=== PATIENT | female | born 1935 | race Caucasian/White ===

== ENCOUNTER 2020-05-15 20:18 | Emergency (ER) | payer SELFPAY ==
[~2020-05-15] VITALS: Ht 165.1 cm; Wt 75.0 kg
--- NOTE | 2020-05-15 20:35 | NUR ---
PATIENT WINIFRED DE LUNA FROM [facility] WITH CHIEF C/O WEAKNESS X2 DAYS. PER EMS PATIENT'S DAUGHTER REPORTS PATIENT IS CONFUSED, AND HAD A GLF YESTERDAY EVENING. PATIENT DENIES LOC. EMS STATES PATIENT HAD FEVER OF 101.9. 1000 MG TYLENOL AND 250 NS EN ROUTE. 18 GAUGE IV STARTED LEFT AC. NO SIGNS OF ACUTE DISTRESS, CONNECTED TO TURNING MACHINE OPERATOR, SIDE RAILS UP X2, CALL LIGHT WITHIN REACH, DAUGHTER AT BEDSIDE.
--- NOTE | 2020-05-15 20:35 | NUR ---
ER PROVIDER AT BEDSIDE FOR EVALUATION.
[2020-05-15 21:10] LABS: BASOPHILS % (AUTO) 1 % (0-1); EOSINOPHILS % (AUTO) 0 % (1-7); LYMPHOCYTES % (AUTO) 27 % (22-44); MEAN CORPUSCULAR HGB CONC 33.8 g/dL (32.4-35.8); MEAN PLATELET VOLUME 8.8 fL (7.4-10.4); MONOCYTES % (AUTO) 12 % (2-9); NEUTROPHILS % (AUTO) 60 % (42-75); PLATELET COUNT 139 x10^3/uL (130-400); RED BLOOD COUNT 4.28 x10^6/uL (3.82-5.3); RED CELL DISTRIBUTION WIDTH 14.6 % (9.6-15.2)
[2020-05-15 21:12] LABS: MD NO
[2020-05-15 21:22] LABS: ANION GAP 6 mmol/L (5-15); CALCIUM 8.1 mg/dL (8.5-10.1); CHLORIDE 108 mmol/L (98-107); CREATININE 1.09 mg/dL (0.55-1.02)
--- NOTE | 2020-05-15 21:24 | NUR ---
URINE COLLECTED VIA STRAIGHT CATH, PATIENT TOLERATED WELL, URINE SAMPLE WALKED TO LAB.
[2020-05-15 21:26] LABS: TROPONIN I < 0.015 ng/mL (0.000-0.045)
[2020-05-15 21:34] LABS: MICROSCOPIC NOT IND
--- NOTE | 2020-05-15 22:23 | NUR ---
PATIENT RESTING IN GURNEY, NO SIGNS OF ACUTE DISTRESS, CONNECTED TO ENVIRONMENTAL SERVICES AIDE, SIDE RAILS UP X2, CALL LIGHT WITHIN REACH, DAUGHTER AT BEDSIDE.
--- NOTE | 2020-05-15 22:36 | NUR ---
ERMD AT BEDSIDE TO DISCUSS POC.
--- NOTE | 2020-05-15 23:07 | NUR ---
PATIENT TO IMAGING.
--- NOTE | 2020-05-15 23:38 | NUR ---
PATIENT RESTING IN GURNEY, CONNECTED TO ACCOUNTANT BUDGET, SIDE RAILS UP X2, NO SIGNS OF ACUTE DISTRESS, CALL LIGHT WITHIN REACH, DAUGHTER AT BEDSIDE.
--- NOTE | 2020-05-15 23:53 | NUR ---
REPORT GIVEN TO VAZQUEZ YOUNG FOR TRANSFER OF PATIENT CARE.
[2020-05-16 00:28] VITALS: BP 141/67
== END 2020-05-16 00:31 | disposition home or self-care (01) ==
LOC: ED 05-16 00:25
DX: R53.1 Weakness (principal); R50.9 Fever, unspecified; R07.9 Chest pain, unspecified; R94.31 Abnormal electrocardiogram [ECG] [EKG]; I10 Essential (primary) hypertension; Z95.0 Presence of cardiac pacemaker
CPT/HCPCS: 36415; 70450; 71045; 80048; 81003; 82040; 83605; 84145; 84484; 85025; 87040; 93005; 99285